=== PATIENT | female | born 1990 | race American Indian/Alaskan Native ===

== ENCOUNTER 2016-03-03 18:20 | Emergency (ER) | payer SELFPAY ==
--- NOTE | 2016-03-03 19:33 | Emergency Department Report ---
Chief Complaint: Nausea/Vomiting/Diarrhea Stated Complaint: NAUSEA/VOMITING Time Seen by Provider: 03/03/16 19:28 - HPI History of Present Illness: 25 y/o female complain of nausea x 1 days after leaving the club .pt state she was at the club and did not drink after but feel bad today .pt denies any pain at present . - ROS Review of Systems: per HPI - Exam Vital Signs: Vital Signs 03/03/16 18:40 Temperature 98 F Pulse Rate 60 Respiratory 20 Rate Blood Pressure 120/60 O2 Sat by Pulse 100 Oximetry MSE screening note: Focused history and physical exam performed. Due to findings the following was ordered: ED Disposition for MSE Condition: Stable
[2016-03-03 19:42] LABS: Basophils % (Auto) 0.5 % (0.0-1.8); Eosinophils % (Auto) 1.1 % (0.0-4.3); Hematocrit 32.9 % (30.3-42.9); Hemoglobin 10.1 gm/dl (10.1-14.3); Mean Corpuscular HGB Conc 31 % (30-34); Platelet Count 419 K/mm3 (140-440); Red Blood Count 4.94 M/mm3 (3.65-5.03); Red Cell Distribution Width 17.9 % (13.2-15.2); White Blood Count 5.7 K/mm3 (4.5-11.0)
[2016-03-03 19:46] LABS: Mean Corpuscular Hemoglobin 20 pg (28-32); Mean Corpuscular Volume 67 fl (79-97)
[2016-03-03 19:51] LABS: Amylase 90 units/L (27-131); BUN/Creatinine Ratio 12.85; Blood Urea Nitrogen 9 mg/dL (7-17); Calcium 8.9 mg/dL (8.4-10.2); Carbon Dioxide 24 mmol/L (22-30); Chloride 101.9 mmol/L (98-107); Glucose 100 mg/dL (65-100); Lipase 33 units/L (13-60); Potassium 4.3 mmol/L (3.6-5.0); Sodium 140 mmol/L (137-145)
[2016-03-03 19:55] LABS: Bacteria,Urine 1+ /HPF (Negative); Bilirubin,Urine NEG (Negative); Blood,Urine SM (Negative); Ketones,Urine NEG (Negative); Leukocyte Esterase,Urine LG (Negative); Mucus,Urine FEW /HPF; Nitrite,Urine NEG (Negative); Protein,Urine <15 mg/dL mg/dL (Negative); Urobilinogen,Urine < 2.0 mg/dL (<2.0)
[2016-03-03 20:06] LABS: Anion Gap 18 mmol/L
[2016-03-03 20:15] VITALS: BP 112/68
--- NOTE | 2016-03-03 20:42 | Emergency Department Report ---
ED N/V/D HPI - General Chief complaint: Nausea/Vomiting/Diarrhea Stated complaint: NAUSEA/VOMITING Time Seen by Provider: 03/03/16 20:13 Source: patient Mode of arrival: Ambulatory Limitations: No Limitations - History of Present Illness Initial comments: 25 yo femalein past medical history presents Hospital complains of nausea since partying last night. Patient presented last night for New Year's. Did not drink any alcohol use any substances. She developed nausea with 2 episodes of vomiting early this a.m. Patient has Tolerated fluid intake since. Mild "uncomfortable" lower abdominal pain It is constant, rated 2/10 in intensity, mildly increased with palpation. No alleviating factors. Patient denies fever , hematemesis, hematochezia, diarrhea, fever, sick contacts, previous abdominal surgeries. Denies as discharge or bleeding. LMP 02/13/2016 - Related Data Previous Rx's Medication Instructions Recorded Last Taken Type Naproxen [Naprosyn] 500 mg PO BID #30 tablet 01/13/13 Unknown Rx methOCARBAMOL [Robaxin] 500 mg PO BID #30 tab 01/13/13 Unknown Rx Ondansetron [Zofran ODT TAB] 8 mg PO Q8HR #20 tab.rapdis 07/26/15 Unknown Rx medroxyPROGESTERone ACETATE 10 mg PO QDAY #10 tablet 07/26/15 Unknown Rx [Provera] traMADol [Ultram 50 MG tab] 50 mg PO Q6HR PRN #14 tablet 07/26/15 Unknown Rx Ibuprofen [Motrin] 600 mg PO Q8H PRN #30 tablet 03/03/16 Unknown Rx Promethazine [Phenergan TAB] 25 mg PO Q6HR PRN #20 tab 03/03/16 Unknown Rx metroNIDAZOLE [Flagyl] 500 mg PO Q12HR #14 tab 03/03/16 Unknown Rx Allergies Allergy/AdvReac Type Severity Reaction Status Date / Time No Known Allergies Allergy Verified 07/26/15 13:21 ED Review of Systems ROS: Stated complaint: NAUSEA/VOMITING Other details as noted in HPI Comment: All other systems reviewed and negative Other: Constitutional: No fevers chills Eyes: No eye pain visual changes ENT: No ear pain or throat pain Neck: Denies pain Respiratory: Denies cough wheezing shortness of breath Cardiovascular: Denies chest pain, palpitations, syncope GI: As per HPI : Denies dysuria, urinary frequency, or urgency Musculoskeletal: Denies back pain, joint swelling Skin: Denies rash, lesions, erythema Neurologic: Denies headache, numbness, weakness Psychiatric: Denies suicidal ideation, hallucinations ED Past Medical Hx - Past Medical History Previous Medical History?: No - Surgical History Past Surgical History?: No - Social History Smoking Status: Current Some Day Smoker Substance Use Type: None (denies illicit drug use) - Medications Home Medications: Home Medications Medication Instructions Recorded Confirmed Last Taken Type Naproxen [Naprosyn] 500 mg PO BID #30 tablet 01/13/13 Unknown Rx methOCARBAMOL [Robaxin] 500 mg PO BID #30 tab 01/13/13 Unknown Rx Ondansetron [Zofran ODT TAB] 8 mg PO Q8HR #20 tab.rapdis 07/26/15 Unknown Rx medroxyPROGESTERone ACETATE 10 mg PO QDAY #10 tablet 07/26/15 Unknown Rx [Provera] traMADol [Ultram 50 MG tab] 50 mg PO Q6HR PRN #14 tablet 07/26/15 Unknown Rx Ibuprofen [Motrin] 600 mg PO Q8H PRN #30 tablet 03/03/16 Unknown Rx Promethazine [Phenergan TAB] 25 mg PO Q6HR PRN #20 tab 03/03/16 Unknown Rx metroNIDAZOLE [Flagyl] 500 mg PO Q12HR #14 tab 03/03/16 Unknown Rx ED Physical Exam - General Limitations: No Limitations - Other Other exam information: General: No limitations, patient is alert in no acute distress Head exam: Atraumatic, normocephalic Eyes exam: Normal appearance, pupils equal reactive to light, extraocular movements intact ENT: Moist mucous membrane, normal oropharynx Neck exam: Normal inspection, full range of motion, no meningismus nontender Respiratory exam: Clear to auscultation bilateral, no wheezes, rales, crackles Cardiovascular: Normal rate and rhythm, normal heart sounds Abdomen: Soft, nondistended, suprapubic tenderness, with normal bowel sounds, no rebound, or guarding : Vaginal discharge whitish, no odor, mild cervical erythema, no CMT or adnexal tenderness Extremity: Full range of motion normal inspection no deformity Back: Normal Inspection, full range of motion, no tenderness Neurologic: Alert, oriented x3, cranial nerves intact, no motor or sensory deficit Psychiatric: normal affect, normal mood Skin: Warm, dry, intact ED Course Vital Signs 03/03/16 03/03/16 03/03/16 18:40 20:14 20:15 Temperature 98 F 98.2 F Pulse Rate 60 72 Respiratory 20 12 12 Rate Blood Pressure 120/60 Blood Pressure 112/68 [Left] O2 Sat by Pulse 100 100 Oximetry - Reevaluation(s) Reevaluation #1: 03/03/16 21:13 Patient declined medication for nausea or pain seems minimal at this time. Rocephin, azithromycin, and Flagyl ordered for positive Trichomonas and clue cells. ED Medical Decision Making - Lab Data Result diagrams: 03/03/16 19:29 03/03/16 19:29 Lab Results 03/03/16 03/03/16 03/03/16 Range/Units 19:29 19:29 19:29 WBC 5.7 (4.5-11.0) K/mm3 RBC 4.94 (3.65-5.03) M/mm3 Hgb 10.1 (10.1-14.3) gm/dl Hct 32.9 (30.3-42.9) % MCV 67 L (79-97) fl MCH 20 L (28-32) pg MCHC 31 (30-34) % RDW 17.9 H (13.2-15.2) % Plt Count 419 (140-440) K/mm3 Lymph % (Auto) 46.6 H (13.4-35.0) % [place] % (Auto) 10.4 H (0.0-7.3) % Eos % (Auto) 1.1 (0.0-4.3) % Baso % (Auto) 0.5 (0.0-1.8) % Lymph # 2.6 (1.2-5.4) K/mm3 [place] # 0.6 (0.0-0.8) K/mm3 Eos # 0.1 (0.0-0.4) K/mm3 Baso # 0.0 (0.0-0.1) K/mm3 Seg Neutrophils % 41.4 (40.0-70.0) % Seg Neutrophils # 2.3 (1.8-7.7) K/mm3 Sodium 140 (137-145) mmol/L Potassium 4.3 (3.6-5.0) mmol/L Chloride 101.9 (98-107) mmol/L Carbon Dioxide 24 (22-30) mmol/L Anion Gap 18 mmol/L BUN 9 (7-17) mg/dL Creatinine 0.7 (0.7-1.2) mg/dL Estimated GFR > 60 ml/min BUN/Creatinine Ratio 12.85 % Glucose 100 (65-100) mg/dL Calcium 8.9 (8.4-10.2) mg/dL Amylase 90 (27-131) units/L Lipase 33 (13-60) units/L HCG, Quant (0-4) mIU/mL Urine Color Yellow (Yellow) Urine Turbidity Cloudy (Clear) Urine pH 7.0 (5.0-7.0) Ur Specific [place] 1.012 (1.003-1.030) Urine Protein <15 mg/dl (Negative) mg/dL Urine Glucose (UA) Neg (Negative) mg/dL Urine Ketones Neg (Negative) mg/dL Urine Blood Sm (Negative) Urine Nitrite Neg (Negative) Urine Bilirubin Neg (Negative) Urine Urobilinogen < 2.0 (<2.0) mg/dL Ur Leukocyte Esterase Lg (Negative) Urine WBC (Auto) 40.0 H (0.0-6.0) /HPF Urine RBC (Auto) 13.0 (0.0-6.0) /HPF U Epithel Cells (Auto) 40.0 H (0-13.0) /HPF Urine Bacteria (Auto) 1+ (Negative) /HPF Ur Transition Epith Cell 1 /HPF Urine Mucus Few /HPF Urine HCG, Qual (Negative) 03/03/16 03/03/16 Range/Units 19:38 20:39 WBC (4.5-11.0) K/mm3 RBC (3.65-5.03) M/mm3 Hgb (10.1-14.3) gm/dl Hct (30.3-42.9) % MCV (79-97) fl MCH (28-32) pg MCHC (30-34) % RDW (13.2-15.2) % Plt Count (140-440) K/mm3 Lymph % (Auto) (13.4-35.0) % [place] % (Auto) (0.0-7.3) % Eos % (Auto) (0.0-4.3) % Baso % (Auto) (0.0-1.8) % Lymph # (1.2-5.4) K/mm3 [place] # (0.0-0.8) K/mm3 Eos # (0.0-0.4) K/mm3 Baso # (0.0-0.1) K/mm3 Seg Neutrophils % (40.0-70.0) % Seg Neutrophils # (1.8-7.7) K/mm3 Sodium (137-145) mmol/L Potassium (3.6-5.0) mmol/L Chloride (98-107) mmol/L Carbon Dioxide (22-30) mmol/L Anion Gap mmol/L BUN (7-17) mg/dL Creatinine (0.7-1.2) mg/dL Estimated GFR ml/min BUN/Creatinine Ratio % Glucose (65-100) mg/dL Calcium (8.4-10.2) mg/dL Amylase (27-131) units/L Lipase (13-60) units/L HCG, Quant < 2 (0-4) mIU/mL Urine Color Yellow (Yellow) Urine Turbidity Clear (Clear) Urine pH 6.0 (5.0-7.0) Ur Specific [place] 1.023 (1.003-1.030) Urine Protein <15 mg/dl (Negative) mg/dL Urine Glucose (UA) Neg (Negative) mg/dL Urine Ketones Neg (Negative) mg/dL Urine Blood Neg (Negative) Urine Nitrite Neg (Negative) Urine Bilirubin Neg (Negative) Urine Urobilinogen 2.0 (<2.0) mg/dL Ur Leukocyte Esterase Lg (Negative) Urine WBC (Auto) 1.0 (0.0-6.0) /HPF Urine RBC (Auto) 1.0 (0.0-6.0) /HPF U Epithel Cells (Auto) 2.0 (0-13.0) /HPF Urine Bacteria (Auto) (Negative) /HPF Ur Transition Epith Cell /HPF Urine Mucus Few /HPF Urine HCG, Qual Negative (Negative) Wet prep greater than 20 clue cells, moderate Trichomonas, no yeast GC chlamydia pending - Medical Decision Making Since the prep positive for Trichomonas and clue cells will be empirically treated for gonorrhea and Chlamydia as well since there is a delay in results. - Differential Diagnosis gastritis, , UTI, vaginitis, cervicitis Critical Care Time: No Critical care attestation.: If time is entered above; I have spent that time in minutes in the direct care of this critically ill patient, excluding procedure time. ED Disposition Clinical Impression: Bacterial vaginitis, Trichomonas infection Disposition: DISCHARGED TO HOME OR SELFCARE Is pt being admited?: No Does the pt Need Aspirin: No Condition: Stable Instructions: Bacterial Vaginosis (ED), Trichomoniasis (ED) Additional Instructions: Take the medication as prescribed. Do not drink alcohol while taking this medication because U may develop severe nausea and vomiting. Your partner will need to be treated for Trichomonas. Your gonorrhea and chlamydia tests are pending and take approximately 3-4 days result. You may obtain results to medical records with a photo ID. You may also obtain results through the follow -up doctor office via medical record request. If positive your partner will need treatment as well. Prescriptions: Ibuprofen [Motrin] 600 mg PO Q8H PRN #30 tablet PRN Reason: Pain Promethazine [Phenergan TAB] 25 mg PO Q6HR PRN #20 tab PRN Reason: Nausea metroNIDAZOLE [Flagyl] 500 mg PO Q12HR #14 tab Referrals: [facility] [Provider Group] - 3-5 Days Forms: STI Treatment and Prevention Time of Disposition: 21:21
[2016-03-03 20:50] LABS: Bilirubin,Urine NEG (Negative); Blood,Urine NEG (Negative); Ketones,Urine NEG (Negative); Leukocyte Esterase,Urine LG (Negative); Mucus,Urine FEW /HPF; Nitrite,Urine NEG (Negative); Protein,Urine <15 mg/dL mg/dL (Negative)
[2016-03-03] MEDS ORDERED: ROCEPHIN IM ONE (21:12)
[2016-03-03] MEDS ORDERED: FLAGYL PO ONE (21:12)
[2016-03-03] MEDS ORDERED: XYLOCAINE 1% MPF 5 mL INFILTRATI ONE (21:12)
[2016-03-03] MEDS ORDERED: ZITHROMAX PO ONE (21:12)
== END 2016-03-03 22:02 | disposition home or self-care (01) ==
LOC: ED 18:20
DX: N76.0 Acute vaginitis (principal); A59.9 Trichomoniasis, unspecified; F17.200 Nicotine dependence, unspecified, uncomplicated
CPT/HCPCS: 36415; 80048; 81001; 81025; 82150; 83690; 84702; 85025; 87210; 87591; 96372; 99284; J0696